=== PATIENT | male | born 1980 | race Hispanic/Latino ===

== ENCOUNTER 2018-12-14 20:58 | Emergency (ER) | payer BC ==
[~2018-12-14] VITALS: Ht 175.3 cm; Wt 84.8 kg
--- OUTSIDE RECORDS SUMMARY | 2018-12-14 21:01 | XMS REPORT ---
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 Allergies, Adverse Reactions, Alerts Allergy Name Allergy Type Status Severity Reaction(s) Onset Date Inactive Date Treating Clinician Comments cephalexin DA Active LA 2017-11-16 00:00:00 KEFLEX DA Active U 2008-05-30 00:00:00 No Known Contrast Allergies DA Active U 2008-05-30 00:00:00 No Known Food Allergies DA Active U 2008-05-30 00:00:00 No Known Other Allergies DA Active U 2008-05-30 00:00:00 Medications This patient has no known medications. Results Test Description Test Time Test Comments Text Results Atomic Results Result Comments RAD, SPINE, LUMBAR, COMPLETE (MIN 4 VIEWS) 2017-10-15 19:49:00 Reason for exam:- >BACK PAINShould this be performed at the bedside?->No FINAL REPORT History: Back pain Comparison: None Discussion : AP, lateral, oblique and cone-down views of the lumbar spine were obtained. There are five non-rib bearing lumbar vertebra. There are no fractures or subluxations. There is no spondylolysis or spondylolisthesis. No lytic or blastic lesions are appreciated. Multilevel degenerative disc changes of the lumbar spine are seen most significantly at the L5-S1 level. Impression: Multilevel degenerative disc changes of the lumbar spine. Signed: Anil Centeno Verified Date/Time: 10/15/2017 19:49:00 Reading Location: [address] Consult Reading Room
[2018-12-14] MEDS ORDERED: ACETAMINOPHEN 325 MG TAB PO ONE (21:30)
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
== END 2018-12-14 22:50 | disposition home or self-care (01) ==
LOC: FSED 20:58
DX: S16.1XXA Strain of muscle, fascia and tendon at neck level, initial encounter (principal); V57.5XXA Driver of pick-up truck or van injured in collision with fixed or stationary object in traffic accident, initial encounter; Y92.488 Other paved roadways as the place of occurrence of the external cause
CPT/HCPCS: 72040; 99283